=== PATIENT | female | born 1960 | race Two or more races ===

== ENCOUNTER 2024-01-10 15:52 | Emergency (ER) | payer MEDICAID, OTHER ==
[~2024-01-10] VITALS: Ht 162.6 cm; Wt 44.3 kg
[2024-01-10] MEDS: KETOROLAC TROMETH 30 MG/ML 1ML VIAL IM ONE (17:24)
[2024-01-10] MEDS ORDERED: HYDR-4902 PO (17:44)
[2024-01-10 17:49] VITALS: BP 121/70; PULSE 85; RESP 18; O2SAT 99
== END 2024-01-10 18:05 | disposition home or self-care (01) ==
LOC: ER 15:52
DX: M25.532 Pain in left wrist (principal); M25.512 Pain in left shoulder; J44.9 Chronic obstructive pulmonary disease, unspecified; I10 Essential (primary) hypertension; F17.210 Nicotine dependence, cigarettes, uncomplicated; Z88.0 Allergy status to penicillin; Z91.041 Radiographic dye allergy status
CPT/HCPCS: 73030; 73110; 96372; 99284; J1885